=== PATIENT | male | born 1985 | race Caucasian/White ===

== ENCOUNTER 2018-10-17 09:46 | Observation (INO) | payer BC ==
--- NOTE | 2018-10-17 10:02 | EDPHY ---
General Time Seen by Provider: 10/17/18 09:48 Narrative: I, Dr. Montemayor, examined the patient. He has rales in the base of both lungs, concerning for high altitude pulmonary edema. I agree with the course of action discussed and pursued. (Og Montemayor) CLINICAL IMPRESSION: HAPE, hypoxia ASSESSMENT/PLAN: Patient is a 33-year-old male with a significant history of right hypoplastic lung disease who presents to the emergency department with complaints of chest tightness, shortness of breath and wet cough. Patient is visiting from [place], had a sudden onset of symptoms while in [place] yesterday. Patient mildly tachypneic on arrival without retractions, oxygen saturation was 85% on room air. An ECG was immediately obtained and revealed normal sinus rhythm without evidence of ischemia; reviewed by Dr. Montemayor. CBC revealed mild leukocytosis, do not suspect infectious process. BMP unremarkable. Dimer negative, do not suspect pulmonary embolus. BNP elevated at 741 consistent with acute pulmonary edema. Chest x-ray revealed possible consolidation in the left lower lobe however history is most consistent with acute pulmonary edema. Patient was given 10 mg of dexamethasone and 20 mg of Lasix, he had an improvement of his symptoms however remained hypoxic on room air and mildly tachycardic. Urine output only 600. History of physical examination is most consistent with HAPE and hypoxia. The patient will be admitted to the hospitalist service for further observation and management, I personally discussed this case with Criss Cohn and the patient will be admitted to Dr. Diaz. On repeat examination prior to transfer to the floor the patient is well-appearing, his oxygen saturation was 94% on 2 L of oxygen, he otherwise remained hemodynamically stable. Case discussed with and patient seen by Dr. Montemayor. DIFFERENTIAL DX: Shortness of breath including but not limited to pulmonary infectious process, COPD, asthma, pulmonary embolus and congestive heart failure. ED COURSE: 9:51 a.m.: Case discussed with Dr. Montemayor 10:15 a.m.: Chest x-ray reviewed, findings consistent with HAPE. 12:26 p.m.: On repeat examination the patient states that he feels much better. His heart rate is 114, there is no evidence of respiratory distress. He is 97% on 2 L of oxygen. CHIEF COMPLAINT: Cough, shortness of breath HPI: Patient is a 33-year-old male with a significant medical history of hypoplastic right lung visiting from [place] who presents to the emergency department complaining of cough, shortness of breath and chest tightness. Patient endorses he arrive from [place] on Thursday, they traveled up to [place]. Yesterday he started to develop some mild shortness of breath, felt hot and had some associated nausea. At 1:00 a.m. He woke up with a very wet cough, travel down to [place] and was seen at urgent care, sent here for further evaluation of hypoxia, shortness of breath and chest tightness. Patient denies any fevers or chills, he has had no headache or dizziness. He denies any chest pain however does feel some tightness in the center of his chest which has been ongoing since yesterday. Patient does endorse shortness of breath and a very wet cough which started suddenly at 1:00 a.m.. He denies any vomiting, abdominal pain or lower extremity edema. No history of similar episodes in the past. PMH: Hypoplastic right lung Pertinent Past Surgical History: Denies Family History: Noncontributory Social History: Denies cigarette smoking, smokes marijuana regularly, denies illicit drug use, occasional alcohol. REVIEW OF SYSTEMS: All other systems negative Constitutional: No fever, no chills, appetite change. Eyes: No discharge, vision change ENT: No sore throat, congestion, ear pain. Cardiovascular: Chest tightness. No palpitations. Respiratory: Cough, shortness of breath. Gastrointestinal: Nausea. No abdominal pain, no vomiting, diarrhea. Genitourinary: No hematuria, dysuria, flank pain, pelvic pain Musculoskeletal: No back pain, joint swelling, joint pain, myalgias. Skin: No rashes, color change. Neurological: No headache, dizziness, weakness. PHYSICAL EXAM: General Appearance: Well-developed, mildly to keep neck however no acute distress HENT: Normocephalic, atraumatic. Bilateral external ears are normal. Bilateral tympanic membranes are normal with pearly harvey reflex. Nares are clear, mucosa is pink. Oropharynx is clear, uvula is midline. There is no tonsillar enlargement or exudate. The dentition is normal. Eyes: PERRLA, no acute vision change, nystagmus, swelling, discharge, pain or photosensitivity. Conjunctiva pink, no pallor or injection Neck: Supple, nontender, no lymphadenopathy, no midline pain, FROM, no meningismus. Respiratory: Mildly tachypneic, breath sounds decreased on the right lung; diminished bilaterally at bases with rales. There are no retractions.] Cardiac: Tachycardic, no murmurs or gallops. Gastrointestinal: Abdomen is soft, nontender, bowel sounds normal, no masses/ hernia, no rigidity, guarding or focal peritoneal findings. Neurological: Alert and oriented x 3, CN 2-12 grossly intact, normal gait no ataxia, DTR's intact, normal sensation and strength Skin: Warm, dry, no rashes, no nodules on palpation. Musculoskeletal: Extremities are symmetrical, full range of motion, no tenderness, deformity or erythema. No lower extremity edema bilaterally. Psychiatric: Patient is oriented X 3, there is no agitation. MEDICAL DECISION MAKING: Patient was seen independently. Secondary supervising physician at time of evaluation was Dr. Montemayor. Diagnosis: Shortness of breath, hypoxia. New, requires workup Summary: See Assessment and Plan for summary of ED visit Clinical lab tests: ordered / reviewed. Independent visualization of images, tracing, or specimens: Yes. Decision to obtain medical records or history from someone other than the patient: Yes, EMS Review / Summarize previous medical records: None available Discussed patient with another provider: Yes, Dr. Montemayor Patient Progress: Stable, admit. (Madeline Loera) - Diagnostics Imaging Results: Imaging Impressions Chest X-Ray 10/17/18 09:54 Impression: 1. Left lower lobe pneumonia. 2. Severe right lung volume loss and mediastinal shift to the right, probably representing chronic pleuroparenchymal fibrosis or chronic granulomatous disease versus less likely acute atelectasis. - Objective Vital Signs: Initial Vital Signs Temperature (C) 37.2 C 10/17/18 09:51 Heart Rate 103 H 10/17/18 09:51 Respiratory Rate 26 H 10/17/18 09:51 Blood Pressure 141/90 H 10/17/18 09:51 O2 Sat (%) 85 L 10/17/18 09:51 O2 Delivery Mode Room Air O2 (L/minute) 3 Allergies/Adverse Reactions: No Known Allergies Allergy (Unverified 10/17/18 09:55) Home Medications: Medication Instructions Recorded NK [No Known Home Meds] 10/17/18 Laboratory Results: Laboratory Results 10/17/18 10:30 10/17/18 10:30 10/17/18 10/17/18 10/17/18 10:30 10:30 10:30 WBC 10.84 10^3/uL H 10^3/uL (3.80-9.50) RBC 5.60 10^6/uL 10^6/uL (4.40-6.38) Hgb 16.9 g/dL g/dL (13.7-17.5) Hct 48.0 % % (40.0-51.0) MCV 85.7 fL fL (81.5-99.8) MCH 30.2 pg pg (27.9-34.1) MCHC 35.2 g/dL g/dL (32.4-36.7) RDW 12.0 % % (11.5-15.2) Plt Count 227 10^3/uL 10^3/uL (150-400) MPV 9.5 fL fL (8.7-11.7) Neut % (Auto) 87.5 % H % (39.3-74.2) Lymph % (Auto) 6.0 % L % (15.0-45.0) Thurston % (Auto) 5.8 % % (4.5-13.0) Eos % (Auto) 0.1 % L % (0.6-7.6) Baso % (Auto) 0.2 % L % (0.3-1.7) Nucleat RBC Rel Count 0.0 % % (0.0-0.2) Absolute Neuts (auto) 9.49 10^3/uL H 10^3/uL (1.70-6.50) Absolute Lymphs (auto) 0.65 10^3/uL L 10^3/uL (1.00-3.00) Absolute Monos (auto) 0.63 10^3/uL 10^3/uL (0.30-0.80) Absolute Eos (auto) 0.01 10^3/uL L 10^3/uL (0.03-0.40) Absolute Basos (auto) 0.02 10^3/uL 10^3/uL (0.02-0.10) Absolute Nucleated RBC 0.00 10^3/uL 10^3/uL (0-0.01) Immature Gran % 0.4 % % (0.0-1.1) Immature Gran # 0.04 10^3/uL 10^3/uL (0.00-0.10) D-Dimer < 0.27 ug/mLFEU ug/mLFEU (0.00-0.50) Sodium 137 mEq/L mEq/L (135-145) Potassium 4.2 mEq/L mEq/L (3.5-5.2) Chloride 104 mEq/L mEq/L (97-110) Carbon Dioxide 24 mEq/l mEq/l (22-31) Anion Gap 9 mEq/L mEq/L (6-14) BUN 12 mg/dL mg/dL (7-23) Creatinine 0.9 mg/dL mg/dL (0.7-1.3) Estimated GFR > 60 Glucose 98 mg/dL mg/dL (70-100) Calcium 9.2 mg/dL mg/dL (8.5-10.4) Total Bilirubin 1.2 mg/dL mg/dL (0.1-1.4) AST 24 IU/L IU/L (17-59) ALT 28 IU/L IU/L (21-72) Alkaline Phosphatase 99 IU/L IU/L (38-126) POC Troponin I NT-Pro-B Natriuret Pep 741 pg/mL H pg/mL (0-125) Total Protein 7.3 g/dL g/dL (6.3-8.2) Albumin 4.2 g/dL g/dL (3.5-5.0) 10/17/18 10:11 WBC RBC Hgb Hct MCV MCH MCHC RDW Plt Count MPV Neut % (Auto) Lymph % (Auto) Thurston % (Auto) Eos % (Auto) Baso % (Auto) Nucleat RBC Rel Count Absolute Neuts (auto) Absolute Lymphs (auto) Absolute Monos (auto) Absolute Eos (auto) Absolute Basos (auto) Absolute Nucleated RBC Immature Gran % Immature Gran # D-Dimer Sodium Potassium Chloride Carbon Dioxide Anion Gap BUN Creatinine Estimated GFR Glucose Calcium Total Bilirubin AST ALT Alkaline Phosphatase POC Troponin I 0.03 ng/mL ng/mL (0.00-0.08) NT-Pro-B Natriuret Pep Total Protein Albumin Medications Given: Discontinued Medications Dexamethasone (Decadron Injection) 10 mg IVP EDNOW ONE Stop: 10/17/18 10:17 Last Admin: 10/17/18 10:22 Dose: 10 mg Furosemide (Lasix Injection) 20 mg IVP EDNOW ONE Stop: 10/17/18 10:17 Last Admin: 10/17/18 10:23 Dose: 20 mg Point of Care Test Results: Chemistry 10/17/18 10:11 POC Troponin I 0.03 ng/mL ng/mL (0.00-0.08) Departure - Departure Dis[facility]: [facility] In[facility] Acute Clinical Impression: Hypoxia High altitude pulmonary edema Qualifiers: Encounter type: initial encounter Qualified Code(s): T70.29XA - Other effects of high altitude, initial encounter Condition: Good
[2018-10-17] MEDS ORDERED: DEXAMETHASONE 10 MG/ML VIAL IVP ONE (10:16)
[2018-10-17] MEDS ORDERED: FUROSEMIDE 20 MG/2 ML VIAL IVP ONE (10:16)
[2018-10-17] MEDS ORDERED: DEXAMETHASONE 4 MG/ML VIAL ONE (10:19)
[2018-10-17 10:42] LABS: PLATELET COUNT 227 10^3/uL (150-400)
--- NOTE | 2018-10-17 16:34 | GHP ---
DATE OF ADMISSION: 10/17/2018 CHIEF COMPLAINT: Shortness of breath. HISTORY: The patient is a 33-year-old male visiting from [place]. They flew in on , night in [place]. On Thursday they went to [place]. Approximately 24 hours after arri ving at [place], he developed fatigue, headache, shortness of breath, and chest tightness. He wok e suddenly in the middle of the night with a very liquid cough. There has been no fever. He went to an urgent care and was found to be hypoxic, and was sent to the emergency room. In the emergency ro om, he was diagnosed with high altitude pulmonary edema, received steroids and Lasix. He is already feeling much better. PAST MEDICAL HISTORY: Right hypoplastic lung disease, congenital. MEDICATIONS: Please see computerized record for full detailed list. ALLERGIES: No known drug allergies. SOCIAL HISTORY: No smoking, but he does do daily marijuana. Alcohol 2-3 times a week. He was stayi ng at the [facility] in [place]. They were subsequently going to go to [place] and then [facility], but have all of these plans on hold. They are flying back to [place] next Thursday. He is h ere with his significant other. REVIEW OF SYSTEMS: Complete review of systems obtained. Review of systems negative regarding consti tutional, HEENT, GI, pulmonary, vascular, , hematology, skin, muscle, endocrine, psych except for p ositives and negatives as in HPI. FAMILY HISTORY: Reviewed, noncontributory to presenting complaint. PHYSICAL EXAMINATION: GENERAL: Well-developed, well-nourished male, in no acute distress. VITAL SI GNS: Temperature 36.9, pulse 88, blood pressure 136/82, saturating 96% on room air. EYES: Normal c onjunctivae. Pupils equal, react to light. ENT: Normal ears, nose. Hearing intact. Normal lips a nd teeth. Oropharynx moist. NECK: Trachea midline. No thyromegaly. CHEST: Normal respiratory ef fort. LUNGS: Decreased breath sounds on the right. No rales. CARDIOVASCULAR: Regular rate and rh ythm. No murmur. No lower extremity edema. ABDOMEN: Soft, nontender. No hepatosplenomegaly. SKI N: Warm, dry, intact. No rash. MUSCULOSKELETAL: No cyanosis or clubbing. Strength 5/5 upper and lower extremities. NEURO: Cranial nerves intact. Normal sensation to light touch. PSYCH: Alert a nd oriented x3. Normal mood and affect. Normal judgment and insight. Normal memory. LABORATORY DATA: White count 10.8, hematocrit 48.0 platelets 227. Sodium 137, potassium 4.2, chlori de 104, bicarb 24, BUN 12, creatinine 0.9, glucose 98. LFTs are negative. Troponins negative. D-di rodney is negative. EKG viewed by me. My personal interpretation is normal sinus rhythm, no ST- or T-w ave changes. Chest x-ray shows a hypoplastic right lung with scar tissue, a left lower lobe infiltra te. ASSESSMENT/PLAN: 1. High altitude pulmonary edema. Treatment is predominantly descent and oxygen. He did receive IV steroids and Lasix in the emergency room, although pharmacologic therapy in this condition is contro versial. We will check a room air saturation in the morning. 2. Acute respiratory failure. On presentation, he was 85% on room air with a respiratory rate of 26 and evidence of respiratory distress and increased work of breathing. He has already rapidly improv ed after emergency room treatment. 3. Congenital hypoplastic right lung. I suspect his abnormal chest x-ray is baseline for him. This probably did predispose him to the high altitude pulmonary edema as increased pulmonary pressure is a risk factor. CODE STATUS: Full. ADMISSION STATUS: Will admit to observation. Reevaluate tomorrow regarding the ongoing need for hos pitalization. DVT PROPHYLAXIS: He is low risk. /[id number]/MODL
[2018-10-18 08:15] VITALS: BP 120/68
--- NOTE | 2018-10-18 09:46 | ASMTLACE ---
LILIA Length of stay for Answers: Less than 1 day current admission Acuity / Level of Answers: No Care: Did the patient have an inpatient admission? Comorbidities - select Answers: Other Notes: Right hypoplastic lung all that apply disease # of Emergency department Answers: 1-2 visits in the last 6 months Social determinants Answers: History of substance abuse (ETOH, street drugs, prescription drugs, etc.) Score: 5 Date Signed: 10/18/2018 09:45 AM Electronically Signed By:ALFONZO Regalado
--- NOTE | 2018-10-18 09:49 | ASDISCHSUM ---
Discharge Information Plan Status:Home with No Needs Medically Cleared to Leave: Discharge Date: CM D/C Disposition:Home, Routine, Self-Care ADT D/C Disposition:Home, Routine, Self-Care Projected Discharge Date: Transportation at D/C:Family Discharge Delay Reason: Follow-Up Date: Discharge Slot: Final Diagnosis: Placement Information Patient Contact Information Contact Name:IWLFREDO Relationship: Address:[address] Work Phone: [facility]:[place] Alternate Phone: [facility]/Zip Code:[place] [address] Email: Financial Information Financial Class:BCOP Primary Plan Desc:BC OUT OF STATE PPO Primary Plan Number:[id number] Secondary Plan Desc: Secondary Plan Number: Assessment Information LACE LACE Length of stay for Answers: Less than 1 day current admission Acuity / Level of Answers: No Care: Did the patient have an inpatient admission? Comorbidities - select Answers: Other Notes: Right hypoplastic lung all that apply disease # of Emergency department Answers: 1-2 visits in the last 6 months Social determinants Answers: History of substance abuse (ETOH, street drugs, prescription drugs, etc.) Score: 5 Date Signed: 10/18/2018 09:45 AM Electronically Signed By:ALFONZO Regalado [facility] CM Progress Note CM Note CM Note Notes: Pt being discharged independently. Pt reports to transport. Pt reports he plans on taking it easy at discharge and for the rest of time in [place]. Pt denied information on stopping ETOH/MJ. No other CM needs identified. Plan: Independent Date Signed: 10/18/2018 09:47 AM Electronically Signed By:ALFONZO Regalado Intervention Information
--- NOTE | 2018-10-18 15:38 | GDS ---
PRIMARY CARE PROVIDER: Located in [place]. DISCHARGE DIAGNOSIS: High-altitude pulmonary edema. HISTORY OF PRESENT ILLNESS: The patient is a pleasant 33-year-old gentleman who is visiting [place] from [place] who developed shortness of breath, chest tightness, and fatigue upon traveling to [place]. He woke up suddenly in the middle of the night with a very productive cough and shortnes s of breath. He was not having any fevers or chills. He presented to a local urgent care, was found to be hypoxic, and then was sent to the emergency room. Upon coming to [place], he was starting to already feel better, and overnight, he maintained normal oxygen saturations on room air. He does hav e a congenital hypoplastic right lung, which probably contributed to his presentation. We discussed at discharge that we may want to consider prophylactic treatment with nicardipine if he returns to a higher elevation. He states at this point in time, his plan is to not return to the [facility], but r [address] [address] to [place], [place]. I did send a prescription for nifedipine to the local pharmacy in case hi s plans change in any way. He seemed agreeable with this plan. EXAM: VITAL SIGNS: On day of discharge: Temperature 36.6, blood pressure 120/68, heart rate 83, re spirations 16, satting 98% on room air. GENERAL: Patient appears comfortable. He is awake, alert, conversant, in no acute distress. HEART: Regular rate and rhythm. No murmurs noted. LUNGS: Clear to auscultation with normal respiratory effort. ABDOMEN: Soft, nontender, nondistended. : No F oley catheter in place. EXTREMITIES: No significant pitting edema or calf pain with palpation. LABORATORY/IMAGING: Notable studies: Chest x-ray followup from 10/17/2018, showed slight improvemen t in alveolar opacity of left lower lobe, which may represent pneumonia versus less likely asymmetric pulmonary edema. Chronic right lung volume loss and fibrosis. D-dimer less than 0.27. Troponin 0.03. BNP 741. DISCHARGE MEDICATIONS: Patient will not take any daily medications upon hospital discharge. He was provided a prescription for nifedipine ER 30 mg twice a day for prevention of pulmonary edema related to ascending to higher altitude. He was instructed to take this 24 hours prior to higher altitude e xposure. DISCHARGE INSTRUCTIONS: I would recommend returning to the ER should he had any recurrence of sympto ms. Otherwise, I think he can plan on followup with the primary provider upon returning to [facility]. 35 minutes of time dedicated to discharge efforts today. /[id number]/MODL
--- NOTE | 2018-10-21 13:57 | CPEKG ---
Test Reason : OPEN Blood Pressure : / mmHG Vent. Rate : 099 BPM Atrial Rate : 100 BPM P-R Int : 124 ms QRS Dur : 080 ms QT Int : 340 ms P-R-T Axes : 064 057 050 degrees QTc Int : 437 ms Sinus rhythm Confirmed by Dariela Le ([id number]) on 10/21/2018 1:57:16 PM Referred By: Confirmed By:Dariela Le
== END 2018-10-18 12:03 | disposition home or self-care (01) ==
LOC: F1N 14:34
PROVIDERS: ADMIT Internal Medicine; ATTEND Internal Medicine
DX: T70.29XA Other effects of high altitude, initial encounter (principal); W94.0XXA Exposure to prolonged high air pressure, initial encounter; R09.02 Hypoxemia; Z23 Encounter for immunization
CPT/HCPCS: 71046; 90471; 96374; 96375; 99285; G0378; 84484-ER; G0008; J1100; J1940